=== PATIENT | male | born 1975 | race Caucasian/White ===

== ENCOUNTER 2019-06-21 09:38 | Outpatient (CLI) | payer MEDICARE, OTHER ==
--- NOTE | 2019-06-25 14:32 | OP Clinic Progress Note ---
DATE OF VISIT: 06/21/2019 SUBJECTIVE: Coy is a 44-year-old male who is blind and in chemotherapy for about six months for a brain cancer presenting with his, I believe, mother and father in the clinic today for an ingrown toenail on both great toes. He was sent here by Radha dobson at [facility] after having been placed on doxycycline for about 10 days for infected ingrown toenails of bilateral great toes. The patient is doing much better and still has some mild pain when pressing on it but otherwise is doing much better. He does not have any drainage recently. He does not admit to any fevers, chills, nausea, vomiting, shortness of breath or chest pain. OF NOTE, HE DOES HAVE A PENICILLIN ALLERGY. The patient states that he did not have any issues with diarrhea while on doxycycline. OBJECTIVE: Vitals: Temperature 98.6 degrees Fahrenheit, heart rate 94, respiration rate 16, blood pressure 135/83. O2 saturation is 94% on room air. Vascular: 2+ DP and PT pulses bilaterally. Capillary refill time is less than 3 seconds to the toes bilaterally. There is very mild edema noted on the left great toe lateral border and right great toe medial border. There is no other edema noted. Dermatologic: There is no erythema noted in the bilateral feet. There is no ecchymosis or any open lesions noted. There is no drainage at this time. There is just obvious slight irritation with edema noted on the left great toe lateral border and the right great toe medial border. Musculoskeletal: There is pain on palpation noted at the left great toe lateral border and the right great toe medial border. Otherwise no pain on palpation or gross abnormalities are noted. 5/5 muscle strength about the ankle and subtalar joint against resistance bilaterally. Neurologic: Light touch sensation is intact to the toes bilateral feet. ASSESSMENT AND PLAN: 1. Onychocryptosis of bilateral great toes. Risk and benefits of a procedure for a partial nail avulsion only of the left great toe lateral border, of the right great toe medial border were discussed that include but are not limited to bleeding and infection, etc. The patient understands with chemotherapy there is a higher risk of infection, I believe, which is why we are sending him with a prescription for doxycycline 100 mg daily times 10 days for him to fill only if they see any signs of infection begin over the weekend. I want to be extra careful and have that ready to go to fill just in case if any issues happen over the weekend with his chemotherapy. The patient and his parents understand this and they have agreed with both written and verbal consent to go forward with the procedure at this time as mentioned above. We will not do the permanent procedure as this is his first time getting an ingrown toenails on these toes and I do not want to do anything really aggressive while on chemotherapy. They understand this as well. PROCEDURE #1: Partial nail avulsion of the left great toe lateral border was performed. DETAIL: An alcohol swab was utilized to cleanse the base of the left great toe and an injection of a 1:1 mix of 2% lidocaine plain, 0.5% Marcaine plain were injected into the base of the left great toe, totaling 4 cc. Once the anesthesia was obtained, the site was cleansed with a Betadine solution prep. At this time, the left great toe lateral border of the nail was loosened and cut with the nail splitters and removed with a hemostat. It was confirmed that the entire edge of the nail was removed and the site was rinsed with copious amount of normal saline. It was dried and Triple Antibiotic Ointment and 4 x 4 gauze, 1-inch Leidy and 1-inch Coban were applied to the left great toe beginning on the toe and ending on the distal forefoot to help hold it on the toe. The patient had minor bleeding which was controlled with pressure before a dressing application. PROCEDURE #2: An identical procedure including anesthesia was obtained and performed on the right great toe medial nail border. The patient had no further questions or concerns. Post procedure instructions were given verbally and by written instructions. The patient is to return to clinic in one week for followup to make sure that he is healing well. Again a prescription as mentioned above was given just in case needed to be filled for any signs of infection that begin. We will see him in one week for followup. Ant Jesus D.P.M. /Accutype [id number] /mab MTDD
== END 2019-06-21 10:10 ==
LOC: POD 09:38
PROVIDERS: ATTEND Podiatrist Foot & Ankle Surgery
DX: L60.0 Ingrowing nail (principal)
CPT/HCPCS: 11730; 99213; G0463; J2001; J3490; A4554

== ENCOUNTER 2019-06-28 11:36 | Outpatient (CLI) | payer MEDICARE, OTHER ==
--- NOTE | 2019-07-06 10:55 | OP Clinic Progress Note ---
DATE OF VISIT: 06/28/2019 SUBJECTIVE: Coy is a 44-year-old male who is undergoing chemotherapy currently, who presents with his mom today for followup of a right great toe medial border and left great toe lateral border partial nail avulsion with chemical matrixectomy that was performed on 06/21/2019, one week ago. He states that he is having no pain at this time. He has been doing antibiotic ointment and a Band-Aid on the toes. He over the weekend decided to go ahead and fill a prescription for doxycycline that was sent with him just in case that was needed due to his chemotherapy history. We wanted to be proactive and careful to make sure we did not have any bad infection caused by the procedures. They went ahead and filled that and began taking it yesterday. He is taking doxycycline 100 mg daily. He has a 10-day course and was instructed today to just finish seven days and be done with as it really it only sounds like he had irritation around the edges with minor drainage, which was expected. The patient does not admit to any fevers, chills, nausea, vomiting, shortness of breath or chest pain. He presents wearing a mask just to be safe as he is under chemotherapy and trying to avoid getting sick from anyone. OBJECTIVE: Vitals: Temperature 98.2 degrees Fahrenheit, heart rate 85, respiration rate 16, blood pressure 142/85. O2 saturation is 94% on room air. Vascular: 2+ DP and PT pulses bilaterally. Capillary refill time is less than 3 seconds to the toes bilaterally. There is no edema noted bilaterally. Dermatologic: There is no erythema or red irritation or any drainage noted at this time. There is mild crusting of the edge of both procedure sites of the great toes. This was debrided today lightly and it appears beautiful. There is no drainage or malodor or any other signs of infection at this time. Musculoskeletal: There is no pain on palpation on the right great toe medial border nor the left great toe lateral border of partial nail avulsion sites. There are no other abnormalities noted. 5/5 muscle strength is noted about the ankle and subtalar joint bilaterally per previous exam. Neurologic: Light touch sensation is intact to the toes, bilateral feet. ASSESSMENT AND PLAN: 1. Onychocryptosis. 2. Status post partial nail avulsion with chemical matrixectomy of the right great toe medial border and the left great toe lateral border on 06/21/2019. A very light debridement was performed on the edge of both procedures sites, which is not being charged for. The patient was instructed to continue using antibiotic ointment and a Band-Aid for the next week. We will see the patient in [id number] weeks from now as I am gone in two weeks from now and I wanted to check that it is healed at that time before I am gone for two weeks. The patient will continue antibiotic ointment and the Band-Aid daily for another week and then switch to just the Band-Aid for the last few days. We will see him in [id number] weeks, the Tuesday before . The patient was instructed to finish his doxycycline only for a total of seven days rather than the 10 days as I do not think he needs it at all. Ant Jesus D.P.M. /Accutype [id number] R: 07/04/19 /mab MTDD
== END 2019-06-28 12:06 ==
LOC: POD 11:36
PROVIDERS: ATTEND Podiatrist Foot & Ankle Surgery
DX: Z48.817 Encounter for surgical aftercare following surgery on the skin and subcutaneous tissue (principal); L60.0 Ingrowing nail
CPT/HCPCS: 99213; G0463; A4554

== ENCOUNTER 2019-07-09 11:14 | Outpatient (CLI) | payer MEDICARE, OTHER ==
--- NOTE | 2019-07-11 15:12 | OP Clinic Progress Note ---
DATE OF VISIT: 07/09/2019 SUBJECTIVE: Coy is a 44-year-old male presenting with his mother in the clinic today for follow-up of a partial nail avulsion with chemical matrixectomy on the right great toe medial border as well as on the left great toe lateral border performed on 06/21/19. The patient initially did not admit to any other concerns or issues and states that he is having no pain in those areas. Upon further exam, however, he did admit that there was some pain on the lateral border of the right great toe that we have not done a procedure on. He admits that it is not hurting him at all with normal walking around but only hurt because I put pressure on it. He does not admit to any fevers, chills, nausea, vomiting, shortness of breath or chest pain. He presents with his mask to protect from air organisms as he is in chemotherapy. OBJECTIVE: Vitals: Temperature 98.3 degrees Fahrenheit, heart rate 93, respiration rate 16, blood pressure 136/80. O2 saturation is 94% on room air. Vascular: 2+ DP and PT pulses bilaterally. Capillary refill time is less than 3 seconds to the toes bilaterally. There is very mild edema noted on the right great toe lateral border. Dermatologic: There is mild swelling but there is no erythema or real irritation noted on the right great toe, lateral border. The right great toe medial border and the left great toe lateral border appear to have healed beautifully with no erythema or drainage of any kind. The skin appears healed and dry. Musculoskeletal: There is no pain on palpation noted on the right great toe medial border or the left great toe lateral border from the previous avulsion sites. There is, however, mild pain on palpation noted on the lateral border of the right great toenail at this time. 5/5 muscle strength noted about the ankle and subtalar joint, per previous exam bilaterally. Neurologic: Light touch sensation is intact to the toes, bilaterally. ASSESSMENT AND PLAN: 1. Onychocryptosis, bilateral great toes. 2. Status post partial nail avulsion with chemical matrixectomy of the right great toe medial border and the left great toe lateral border performed on 06/21/2019. A discussion was had regarding a concern for the beginnings of an ingrown toenail on the right great toe lateral border. We discussed the possibility of going ahead and doing a procedure on that today to protect it from getting worse while I am out of town. The other part of the discussion was if we should leave it alone as it is not bothering him yet and they would have to agree to look at the site daily to make sure it is not worsening or causing more pain or showing any signs of infection. They understand as they are choosing to not go forward with the procedure today that they will need to watch it carefully daily and to go to an urgent care or primary care doctor right away if there is any signs of infection that begin. They know I will be out of town this coming Tuesday through the entire next week and will not be available to see them probably until about July 26 and they would need to schedule to see me then if anything shows up. The patient and his mom understand this completely and elect to leave the lateral border of the right great toe alone at this time. They will watch it carefully and begin applying antibiotic ointment if needed if it begins to show signs of infection. At this time it is free of any infection and with no drainage at this time. There is just mild edema, and mild pain on palpation at that edge only when I push on it, not when he is walking. The patient has healed otherwise his other 2 procedure sites and is doing great. He does not admit to any other problems and he will plan on seeing me only as needed. Ant Jesus D.P.M. Carmelina Job#: [id number] MTDD
== END 2019-07-09 11:34 ==
LOC: POD 11:14
PROVIDERS: ATTEND Podiatrist Foot & Ankle Surgery
DX: Z48.817 Encounter for surgical aftercare following surgery on the skin and subcutaneous tissue (principal); L60.0 Ingrowing nail
CPT/HCPCS: 99213; G0463; A4554